=== PATIENT | female | born 1980 | race Caucasian/White ===

== ENCOUNTER 2020-06-20 16:39 | Emergency (ER) | payer SELFPAY ==
[~2020-06-20] VITALS: Ht 165.1 cm; Wt 65.8 kg
[2020-06-20 16:44] VITALS: BP 138/95
== END 2020-06-20 17:05 | disposition left against medical advice (07) ==
LOC: ED 16:50
DX: K02.9 Dental caries, unspecified (principal); Z88.9 Allergy status to unspecified drugs, medicaments and biological substances
CPT/HCPCS: 99283